=== PATIENT | female | born 1935 | race Caucasian/White ===

== ENCOUNTER → 2016-08-02 | Outpatient (REF) | payer MEDICARE, OTHER ==
[~2016-08-02] MED LIST: /FENT25PA; /FENT25PA TOP; /LANS30GR OR; AMBI5TAB OR; AMLO2.5T OR; BENI20TA11 PO; CALC0.5C OR; CALC600T10; CALCTAB93 OR; CLIMARA TD; LASI40TA OR; LEVO25TABR OR; MAGN500T2 OR; OXYC10TA97; PROC1INJ5 SC; THERGRAN; TYLENOL PM PO; VICO5TAB OR; VIT D 2000 OR; VITA10006 PO; VITAMIN B COMPLE1 OR; VITAMIN D PO; VITAMIN D50000 UNT
== END ==
LOC: M LAB REF 16:37
PROVIDERS: ATTEND Internal Medicine
DX: K31.4 Gastric diverticulum (principal)

== ENCOUNTER 2016-08-04 15:54 | Emergency (ER) | payer MEDICARE, OTHER ==
[~2016-08-04] VITALS: Ht 154.9 cm; Wt 68.9 kg
[~2016-08-04 15:54] MED LIST changes: -PROC1INJ5 SC
[2016-08-04] MEDS ORDERED: PROC1INJ5 SC (16:22)
[2016-08-04] MEDS ORDERED: NS 1,000 ML IV SCH (18:00)
[2016-08-04 18:37] LABS: MEAN CORPUSCULAR HGB CONC 32.2 g/dl (32.0-36.5); MEAN CORPUSCULAR VOLUME 99.5 fl (80.0-96.0); RED CELL DISTRIBUTION WIDTH 12.5 % (11.5-14.5); WHITE BLOOD COUNT 6.7 K/mm3 (4.0-10.0)
[2016-08-04 18:58] LABS: CALCIUM LEVEL 8.8 MG/DL (8.8-10.2); CREATININE FOR GFR 3.57 MG/DL (0.55-1.02); POTASSIUM SERUM 4.6 MEQ/L (3.5-5.1)
[2016-08-04 21:25] VITALS: BP 147/67
== END 2016-08-04 21:30 | disposition home or self-care (01) ==
LOC: M ED 17:19
DX: R42 Dizziness and giddiness (principal); E86.0 Dehydration; R53.1 Weakness; R11.2 Nausea with vomiting, unspecified; N19 Unspecified kidney failure; Z79.899 Other long term (current) drug therapy; Z88.8 Allergy status to other drugs, medicaments and biological substances; Z88.2 Allergy status to sulfonamides; Z88.0 Allergy status to penicillin

== ENCOUNTER → 2016-09-22 | Outpatient (REF) | payer MEDICARE, OTHER ==
[~2016-09-22] MED LIST changes: +PROC1INJ5 SC
== END ==
LOC: M LAB REF 11:46 → M SFHCPLAZ 11:46
PROVIDERS: ATTEND Dermatology
DX: D48.5 Neoplasm of uncertain behavior of skin (principal)

== ENCOUNTER → 2017-08-18 | Outpatient (REF) | payer MEDICARE, OTHER | LOC: M LAB REF 16:56 | DX: N39.0 Urinary tract infection, site not specified (principal) | CPT/HCPCS: 87186 ==

== ENCOUNTER 2018-06-01 07:08 | Day surgery (SDC) | payer MEDICARE, OTHER ==
[~2018-06-01] VITALS: Ht 154.9 cm; Wt 64.4 kg
[~2018-06-01 07:08] MED LIST changes: +ALLO10TA PO; +BALANCED SALT IRRIGATION SOLUTION 500ML BAG (FOR OR EYE MACHINE) As Ordered ONE; +BIOT5TAB3 PO; +CEFUROXIME 1MG/0.1ML INTRACAMERAL INJ As Ordered ONE; +DUOVISC (0.50ML VISCOAT/0.55ML PROVISC) OPHTH KIT As Ordered ONE; +FURO40TA2 PO; +GABA-1171 PO; +LIDOCAINE 0.75%/EPINEPHRINE 0.025% IN BSS 1ML SYR INTRACAMERAL (OR ONLY) As Ordered ONE; +MELA5TAB21 PO; +MIDAZOLAM INJ 2 MG/2 ML VIAL (J2250) As Ordered ONE; +MIRT1TAB PO; +OFLOXACIN 0.3 % (OCUFLOX) OPTH SOL 5ML OS ONE; +PHENYLEPHRINE 2.5% OPHTH SOL 2ML OS ONE; +POVIDONE-IODINE 5% OPHTH PREP SOL 30ML As Ordered ONE; +PROC20004 IJ; +PROPARACAINE 0.5% OPHTH SOL 15ML OS ONE; +RANI150C PO; +ROCA0.25 PO; +TROPICAMIDE 1% OPHTH SOLN 2ML OS ONE; +TYLE1TAB5 PO; +[UNRECOGNIZED DRUG - CODE] PO; +fentaNYL 100 MCG/2 ML INJECTION (J3010) As Ordered ONE
[2018-06-01 09:25] VITALS: BP 184/77
--- NOTE | 2018-06-01 16:03 | RO ---
DATE OF PROCEDURE: 06/01/2018 PREOPERATIVE DIAGNOSIS: 1. Visually significant nuclear sclerotic cataract left eye. POSTOPERATIVE DIAGNOSIS: 1. Visually significant nuclear sclerotic cataract left eye. PROCEDURE: 1. Cataract extraction with use of phacoemulsification and placement of intraocular lens AU00T0, 23.5 D, left eye. SURGEON: Hosea Ramos DO METAL DIE FINISHER: None. ANESTHESIA: Local with monitored anesthesia care (MAC). COMPLICATIONS: None. POSTOPERATIVE CONDITION: Stable. INDICATIONS FOR SURGERY: 1. Blurred vision affecting patients activities of daily living. DESCRIPTION OF PROCEDURE: The patient was seen in the preoperative area and properly identified. The correct operative eye was identified and marked. The patient received topical anesthetic, antibiotics, and topical dilating drops. The patient was then transferred to the operating room. The correct side was re-identified, and a time-out was performed. The eye was prepped and draped in a sterile fashion. The eyelids were isolated with Tegaderm tape, and the lids were held open with an adjustable speculum. A 1.0 mm paracentesis incision was made. Intraocular preservative-free Shugarcaine was then injected into the anterior chamber. Viscoelastic was then injected into the anterior chamber through the paracentesis. Using a 2.4 mm sharp-tipped keratome, the anterior chamber was entered via a temporal clear cornea incision. A continuous curvilinear capsulorrhexis was created with Utrata forceps. Hydrodissection was performed with balanced salt solution (BSS) on a blunt cannula until the nucleus was able to rotate freely. The crystalline lens was phacoemulsified and aspirated. Irrigation/aspiration was used to remove the cortical material. Cohesive viscoelastic was placed into the capsular bag to deepen it. The implant was placed into the capsular bag and allowed to unfold. Placement was confirmed by visualizing the anterior capsulorrhexis. Irrigation/aspiration was used to remove the viscoelastic. The clear corneal incision was hydrated with BSS on a blunt cannula. The lens was well positioned. The incisions were then tested for leaks and found to be negative. The eye was then palpated for appropriate pressure and adjusted accordingly with BSS. The eyelid speculum was then carefully removed. A shield was placed over the eye. The patient tolerated the procedure well and was discharged to the recovery unit in a stable condition. Edited: 06/01/2018 [id number] frankie
== END 2018-06-01 09:38 | disposition home or self-care (01) ==
LOC: M SDC 07:08
PROVIDERS: ATTEND Ophthalmology
DX: H25.12 Age-related nuclear cataract, left eye (principal); I10 Essential (primary) hypertension; K21.9 Gastro-esophageal reflux disease without esophagitis; F32.9 Major depressive disorder, single episode, unspecified; N18.5 Chronic kidney disease, stage 5; Z79.899 Other long term (current) drug therapy; Z88.0 Allergy status to penicillin; Z88.2 Allergy status to sulfonamides; Z88.1 Allergy status to other antibiotic agents
CPT/HCPCS: 66984; J2250; J3010; V2632

== ENCOUNTER 2018-06-08 06:27 | Day surgery (SDC) | payer MEDICARE, OTHER ==
[~2018-06-08] VITALS: Ht 154.9 cm; Wt 70.1 kg
[~2018-06-08 06:27] MED LIST changes: -BALANCED SALT IRRIGATION SOLUTION 500ML BAG (FOR OR EYE MACHINE) As Ordered ONE; -CEFUROXIME 1MG/0.1ML INTRACAMERAL INJ As Ordered ONE; -DUOVISC (0.50ML VISCOAT/0.55ML PROVISC) OPHTH KIT As Ordered ONE; -LIDOCAINE 0.75%/EPINEPHRINE 0.025% IN BSS 1ML SYR INTRACAMERAL (OR ONLY) As Ordered ONE; -MIDAZOLAM INJ 2 MG/2 ML VIAL (J2250) As Ordered ONE; -OFLOXACIN 0.3 % (OCUFLOX) OPTH SOL 5ML OS ONE; -PHENYLEPHRINE 2.5% OPHTH SOL 2ML OS ONE; -POVIDONE-IODINE 5% OPHTH PREP SOL 30ML As Ordered ONE; -PROPARACAINE 0.5% OPHTH SOL 15ML OS ONE; -TROPICAMIDE 1% OPHTH SOLN 2ML OS ONE; -fentaNYL 100 MCG/2 ML INJECTION (J3010) As Ordered ONE
[2018-06-08] MEDS ORDERED: BALANCED SALT IRRIGATION SOLUTION 500ML BAG (FOR OR EYE MACHINE) As Ordered ONE (06:34)
[2018-06-08] MEDS ORDERED: POVIDONE-IODINE 5% OPHTH PREP SOL 30ML As Ordered ONE (06:34)
[2018-06-08] MEDS ORDERED: DUOVISC (0.50ML VISCOAT/0.55ML PROVISC) OPHTH KIT As Ordered ONE (06:35)
[2018-06-08] MEDS ORDERED: LIDOCAINE 0.75%/EPINEPHRINE 0.025% IN BSS 1ML SYR INTRACAMERAL (OR ONLY) As Ordered ONE (06:35)
[2018-06-08] MEDS ORDERED: PROPARACAINE 0.5% OPHTH SOL 15ML OD ONE (07:00)
[2018-06-08] MEDS ORDERED: PHENYLEPHRINE 2.5% OPHTH SOL 2ML OD ONE (07:00)
[2018-06-08] MEDS ORDERED: OFLOXACIN 0.3 % (OCUFLOX) OPTH SOL 5ML OD ONE (07:00)
[2018-06-08] MEDS ORDERED: TROPICAMIDE 1% OPHTH SOLN 2ML OD ONE (07:00)
[2018-06-08] MEDS ORDERED: fentaNYL 100 MCG/2 ML INJECTION (J3010) As Ordered ONE (07:08)
[2018-06-08] MEDS ORDERED: MIDAZOLAM INJ 2 MG/2 ML VIAL (J2250) As Ordered ONE (07:09)
[2018-06-08 08:56] VITALS: BP 174/98
--- NOTE | 2018-06-08 13:53 | RO ---
DATE OF PROCEDURE: 06/08/2018 PREOPERATIVE DIAGNOSIS: 1. Visually significant nuclear sclerotic cataract right eye. POSTOPERATIVE DIAGNOSIS: 1. Visually significant nuclear sclerotic cataract right eye. PROCEDURE: 1. Cataract extraction with use of phacoemulsification and placement of intraocular lens, AU00T0, 22.0 D, right eye. SURGEON: Hosea Ramos DO BRICK BAKER: None. ANESTHESIA: Local with monitored anesthesia care (MAC). COMPLICATIONS: None. POSTOPERATIVE CONDITION: Stable. INDICATIONS FOR SURGERY: 1. Blurred vision affecting patients activities of daily living. DESCRIPTION OF PROCEDURE: The patient was seen in the preoperative area and properly identified. The correct operative eye was identified and marked. The patient received topical anesthetic, antibiotics, and topical dilating drops. The patient was then transferred to the operating room. The correct side was re-identified, and a time-out was performed. The eye was prepped and draped in a sterile fashion. The eyelids were isolated with Tegaderm tape, and the lids were held open with an adjustable speculum. A 1.0 mm paracentesis incision was made. Intraocular preservative-free Shugarcaine was then injected into the anterior chamber. Viscoelastic was then injected into the anterior chamber through the paracentesis. Using a 2.4 mm sharp-tipped keratome, the anterior chamber was entered via a temporal clear cornea incision. A continuous curvilinear capsulorrhexis was created with Utrata forceps. Hydrodissection was performed with balanced salt solution (BSS) on a blunt cannula until the nucleus was able to rotate freely. The crystalline lens was phacoemulsified and aspirated. Irrigation/aspiration was used to remove the cortical material. Cohesive viscoelastic was placed into the capsular bag to deepen it. The implant was placed into the capsular bag and allowed to unfold. Placement was confirmed by visualizing the anterior capsulorrhexis. Irrigation/aspiration was used to remove the viscoelastic. The clear corneal incision was hydrated with BSS on a blunt cannula. The lens was well positioned. The incisions were then tested for leaks and found to be negative. The eye was then palpated for appropriate pressure and adjusted accordingly with BSS. The eyelid speculum was then carefully removed. A shield was placed over the eye. The patient tolerated the procedure well and was discharged to the recovery unit in a stable condition. LEFTY
== END 2018-06-08 09:00 | disposition home or self-care (01) ==
LOC: M SDC 06:27
PROVIDERS: ATTEND Ophthalmology
DX: H25.11 Age-related nuclear cataract, right eye (principal); E03.9 Hypothyroidism, unspecified; I10 Essential (primary) hypertension; F32.9 Major depressive disorder, single episode, unspecified; N18.9 Chronic kidney disease, unspecified; Z79.899 Other long term (current) drug therapy; Z88.0 Allergy status to penicillin
CPT/HCPCS: 66984; J2250; J3010; V2632

== ENCOUNTER → 2018-09-06 | Outpatient (REF) | payer MEDICARE, OTHER ==
[~2018-09-06] MED LIST changes: -/FENT25PA; -/FENT25PA TOP; -CALC0.5C OR; +CALC0.5C14 OR; +FENT1DIS14; +FENT1DIS14 TOP
== END ==
LOC: M LAB REF 17:22
PROVIDERS: ATTEND Internal Medicine Nephrology
DX: N39.0 Urinary tract infection, site not specified (principal)

== ENCOUNTER → 2018-09-28 | Outpatient (REF) | payer MEDICARE, OTHER | LOC: M LAB REF 13:22 | PROVIDERS: ATTEND Internal Medicine Nephrology | DX: N39.0 Urinary tract infection, site not specified (principal) ==

== ENCOUNTER 2018-10-02 11:21 | Outpatient (CLI) | payer MEDICARE, OTHER ==
[~2018-10-02] VITALS: Ht 157.5 cm; Wt 73.1 kg
[2018-10-02 11:25] VITALS: BP 151/67
[2018-10-02] MEDS ORDERED: ERTAPENEM 1 GM INJ (INVanz) (J1335) As Ordered ONE (11:57)
[2018-10-02] MEDS ORDERED: ERTAPENEM SODIUM 1 GM in NS MINI-BAG PLUS 50 ML IV ONE (12:45)
[2018-10-02] MEDS ORDERED: ERTAPENEM SODIUM 1 GM in NS MINI-BAG PLUS 50 ML IV SCH (12:45)
[2018-10-02 13:35] VITALS: BP 142/74
== END 2018-10-02 13:35 | disposition home or self-care (01) ==
LOC: M INFU 11:21
PROVIDERS: ATTEND Internal Medicine Nephrology
DX: N39.0 Urinary tract infection, site not specified (principal); Z88.0 Allergy status to penicillin; Z88.2 Allergy status to sulfonamides; Z88.1 Allergy status to other antibiotic agents; Z88.8 Allergy status to other drugs, medicaments and biological substances
CPT/HCPCS: 96365; J1335

== ENCOUNTER 2018-10-03 11:28 | Outpatient (CLI) | payer MEDICARE, OTHER ==
[~2018-10-03] VITALS: Ht 156.2 cm; Wt 73.1 kg
[2018-10-03] MEDS ORDERED: ERTAPENEM SODIUM 1 GM in NS MINI-BAG PLUS 50 ML IV SCH (12:00)
[2018-10-03 12:12] VITALS: BP 159/71
[2018-10-03 12:30] VITALS: BP 159/74
[2018-10-03 12:50] VITALS: BP 148/68
== END 2018-10-03 12:50 | disposition home or self-care (01) ==
LOC: M INFU 11:28
PROVIDERS: ATTEND Internal Medicine Nephrology
DX: N39.0 Urinary tract infection, site not specified (principal); Z88.0 Allergy status to penicillin; Z88.2 Allergy status to sulfonamides
CPT/HCPCS: 96365; J1335

== ENCOUNTER 2018-10-04 14:28 | Outpatient (CLI) | payer MEDICARE, OTHER ==
[~2018-10-04] VITALS: Ht 156.2 cm; Wt 73.1 kg
[2018-10-04 14:35] VITALS: BP 177/56
[2018-10-04] MEDS ORDERED: ERTAPENEM SODIUM 1 GM in NS MINI-BAG PLUS 50 ML IV ONE (14:45)
[2018-10-04 15:30] VITALS: BP 172/74
== END 2018-10-04 15:30 | disposition home or self-care (01) ==
LOC: M INFU 14:28
PROVIDERS: ATTEND Internal Medicine Nephrology
DX: N39.0 Urinary tract infection, site not specified (principal); Z88.0 Allergy status to penicillin; Z88.1 Allergy status to other antibiotic agents; Z88.2 Allergy status to sulfonamides; Z88.8 Allergy status to other drugs, medicaments and biological substances
CPT/HCPCS: 96365; J1335

== ENCOUNTER 2018-10-05 13:31 | Outpatient (CLI) | payer MEDICARE, OTHER ==
[~2018-10-05] VITALS: Ht 156.2 cm; Wt 73.1 kg
[2018-10-05 13:40] VITALS: BP 138/54
[2018-10-05] MEDS ORDERED: ERTAPENEM SODIUM 1 GM in NS MINI-BAG PLUS 50 ML IV ONE (14:00)
== END 2018-10-05 14:40 | disposition home or self-care (01) ==
LOC: M INFU 13:31
PROVIDERS: ATTEND Internal Medicine Nephrology
DX: N39.0 Urinary tract infection, site not specified (principal); Z88.0 Allergy status to penicillin; Z88.1 Allergy status to other antibiotic agents; Z88.2 Allergy status to sulfonamides; Z88.8 Allergy status to other drugs, medicaments and biological substances
CPT/HCPCS: 96365; J1335

== ENCOUNTER → 2019-05-03 | Outpatient (REF) | payer MEDICARE, OTHER | LOC: M LAB REF 18:26 | PROVIDERS: ATTEND Internal Medicine Nephrology | DX: D50.9 Iron deficiency anemia, unspecified (principal) ==

== ENCOUNTER → 2019-09-13 | Outpatient (REF) | payer MEDICARE, OTHER | LOC: M LAB REF 12:28 | PROVIDERS: ATTEND Internal Medicine | DX: R10.9 Unspecified abdominal pain (principal) ==

== ENCOUNTER → 2020-01-22 | Outpatient (REF) | payer MEDICARE, OTHER ==
[2020-01-22 19:14] LABS: PERCENT SATURATION 34.2 % (13.2-45.0)
== END ==
LOC: M LAB REF 17:55
PROVIDERS: ATTEND Internal Medicine Nephrology
DX: D50.9 Iron deficiency anemia, unspecified (principal)

== ENCOUNTER → 2020-07-29 | Outpatient (REF) | payer MEDICARE, OTHER ==
[2020-07-29 18:20] LABS: PERCENT SATURATION 33.8 % (13.2-45.0)
== END ==
LOC: M LAB REF 16:42
PROVIDERS: ATTEND Internal Medicine Nephrology
DX: N18.9 Chronic kidney disease, unspecified (principal); D63.1 Anemia in chronic kidney disease

== ENCOUNTER → 2020-09-02 | Outpatient (REF) | payer MEDICARE, OTHER | LOC: M LAB REF 17:06 | PROVIDERS: ATTEND Internal Medicine Nephrology | DX: N39.0 Urinary tract infection, site not specified (principal) ==

== ENCOUNTER → 2020-11-25 | Outpatient (REF) | payer MEDICARE, OTHER | LOC: M LAB REF 17:12 | PROVIDERS: ATTEND Internal Medicine Nephrology | DX: N39.0 Urinary tract infection, site not specified (principal) ==

== ENCOUNTER → 2020-11-27 | Outpatient (CLI) | payer MEDICARE, OTHER ==
[~2020-11-27] VITALS: Ht 157.5 cm; Wt 64.1 kg
[~2020-11-27] MED LIST changes: +ERTAPENEM SODIUM 500 MG in NS 50 ML IV ONE
[2020-11-27 15:20] VITALS: BP 170/78
[2020-11-27 17:40] VITALS: BP 162/68
== END ==
LOC: M INFU 15:14
PROVIDERS: ATTEND Internal Medicine Nephrology
DX: N18.5 Chronic kidney disease, stage 5 (principal); N39.0 Urinary tract infection, site not specified; Z88.0 Allergy status to penicillin; Z88.1 Allergy status to other antibiotic agents; Z88.2 Allergy status to sulfonamides
CPT/HCPCS: 96365; J1335

== ENCOUNTER 2020-11-28 15:38 | Outpatient (CLI) | payer MEDICARE, OTHER ==
[~2020-11-28] VITALS: Ht 154.9 cm; Wt 64.1 kg
[2020-11-28 15:45] VITALS: BP 170/80
[2020-11-28 17:01] VITALS: BP 148/72
== END 2020-11-28 17:05 | disposition home or self-care (01) ==
LOC: M INFU 15:38
PROVIDERS: ATTEND Internal Medicine Nephrology
DX: N18.5 Chronic kidney disease, stage 5 (principal); N39.0 Urinary tract infection, site not specified; Z88.0 Allergy status to penicillin; Z88.1 Allergy status to other antibiotic agents; Z88.2 Allergy status to sulfonamides
CPT/HCPCS: 96365; J1335

== ENCOUNTER 2020-11-29 13:47 | Outpatient (CLI) | payer MEDICARE, OTHER ==
[~2020-11-29] VITALS: Ht 154.9 cm; Wt 64.4 kg
[~2020-11-29 13:47] MED LIST changes: -ERTAPENEM SODIUM 500 MG in NS 50 ML IV ONE
[2020-11-29] MEDS ORDERED: ERTAPENEM SODIUM 500 MG in NS 50 ML IV ONE (16:00)
== END 2020-11-29 16:20 | disposition home or self-care (01) ==
LOC: M OPCLI4PR 13:47 → M MSPAV 13:50 → M OPCLI4PR 16:20
PROVIDERS: ATTEND Internal Medicine Nephrology
DX: N18.5 Chronic kidney disease, stage 5 (principal); N39.0 Urinary tract infection, site not specified; Z88.0 Allergy status to penicillin; Z88.1 Allergy status to other antibiotic agents; Z88.2 Allergy status to sulfonamides
CPT/HCPCS: 96374; J1335

== ENCOUNTER 2020-11-30 13:00 | Outpatient (CLI) | payer MEDICARE, OTHER ==
[~2020-11-30] VITALS: Ht 154.9 cm; Wt 64.3 kg
[2020-11-30 14:00] VITALS: BP 133/60
[2020-11-30] MEDS ORDERED: ERTAPENEM SODIUM 500 MG in NS 50 ML IV ONE (15:00)
== END 2020-11-30 16:05 | disposition home or self-care (01) ==
LOC: M OPCLI4PR 13:00 → M MSPAV 13:02 → M OPCLI4PR 16:05
PROVIDERS: ATTEND Internal Medicine Nephrology
DX: N18.5 Chronic kidney disease, stage 5 (principal); N39.0 Urinary tract infection, site not specified; Z88.0 Allergy status to penicillin; Z88.1 Allergy status to other antibiotic agents; Z88.2 Allergy status to sulfonamides
CPT/HCPCS: 96365; 96366; J1335

== ENCOUNTER 2020-12-01 13:10 | Outpatient (CLI) | payer MEDICARE, OTHER ==
[~2020-12-01] VITALS: Ht 157.5 cm; Wt 64.1 kg
[2020-12-01 13:25] VITALS: BP 164/56
[2020-12-01] MEDS ORDERED: ERTAPENEM SODIUM 500 MG in NS 50 ML IV ONE (14:00)
== END 2020-12-01 14:38 | disposition home or self-care (01) ==
LOC: M OPCLI4PV 13:10 → M MSPAV 13:14 → M OPCLI4PV 14:38
PROVIDERS: ATTEND Internal Medicine Nephrology
DX: N18.5 Chronic kidney disease, stage 5 (principal); N39.0 Urinary tract infection, site not specified; Z88.0 Allergy status to penicillin; Z88.1 Allergy status to other antibiotic agents; Z88.2 Allergy status to sulfonamides
CPT/HCPCS: 96365; J1335

== ENCOUNTER 2020-12-02 15:56 | Outpatient (CLI) | payer MEDICARE, OTHER ==
[~2020-12-02] VITALS: Ht 157.5 cm; Wt 64.1 kg
[2020-12-02 16:00] VITALS: BP 162/72
[2020-12-02] MEDS ORDERED: ERTAPENEM SODIUM 500 MG in NS 50 ML IV ONE (16:00)
[2020-12-02 16:50] VITALS: BP 162/80
== END 2020-12-02 16:50 | disposition home or self-care (01) ==
LOC: M INFU 15:56
PROVIDERS: ATTEND Internal Medicine Nephrology
DX: N18.5 Chronic kidney disease, stage 5 (principal); N39.0 Urinary tract infection, site not specified; Z88.0 Allergy status to penicillin; Z88.1 Allergy status to other antibiotic agents; Z88.2 Allergy status to sulfonamides
CPT/HCPCS: 96365; J1335

== ENCOUNTER 2020-12-03 15:09 | Outpatient (CLI) | payer MEDICARE, OTHER ==
[2020-12-03 15:30] VITALS: BP 140/68
[2020-12-03] MEDS ORDERED: ERTAPENEM SODIUM 500 MG in NS 50 ML IV ONE (15:30)
== END 2020-12-03 16:30 | disposition home or self-care (01) ==
LOC: M INFU 15:09
PROVIDERS: ATTEND Internal Medicine Nephrology
DX: N18.5 Chronic kidney disease, stage 5 (principal); N39.0 Urinary tract infection, site not specified; Z88.0 Allergy status to penicillin; Z88.2 Allergy status to sulfonamides; Z88.1 Allergy status to other antibiotic agents
CPT/HCPCS: 96365; 96366; J1335

== ENCOUNTER → 2020-12-25 | Outpatient (REF) | payer MEDICARE, OTHER | LOC: M LAB REF 17:43 | PROVIDERS: ATTEND Internal Medicine Nephrology | DX: E83.42 Hypomagnesemia (principal) ==

== ENCOUNTER → 2022-08-16 | Outpatient (REF) | payer MEDICARE, OTHER ==
[2022-08-16 17:12] LABS: URIC ACID 4.8 MG/DL (3.1-7.8)
[2022-08-16 17:15] LABS: PHOSPHORUS LEVEL 4.5 MG/DL (2.4-5.1); PTH INTACT 80.4 PG/ML (18.5-88.0)
[2022-08-16 17:18] LABS: FERRITIN 117.1 NG/ML (7.3-270.7)
== END ==
LOC: M LAB REF 16:13
PROVIDERS: ATTEND Internal Medicine
DX: I13.2 Hypertensive heart and chronic kidney disease with heart failure and with stage 5 chronic kidney disease, or end stage renal disease (principal); N18.5 Chronic kidney disease, stage 5; M10.9 Gout, unspecified; D63.1 Anemia in chronic kidney disease; E03.9 Hypothyroidism, unspecified

== ENCOUNTER → 2023-02-18 | Outpatient (REF) | payer MEDICARE, OTHER | LOC: M LAB REF 17:16 | PROVIDERS: ATTEND Internal Medicine Nephrology | DX: N39.0 Urinary tract infection, site not specified (principal) ==

== ENCOUNTER 2023-03-01 19:51 | Emergency (ER) | payer MEDICARE, OTHER ==
[~2023-03-01] VITALS: Ht 154.9 cm; Wt 73.2 kg
[2023-03-01 19:51] VITALS: BP 161/72; TEMP 97.6; O2SAT 98
== END 2023-03-01 20:01 | disposition left against medical advice (07) ==
LOC: M ED 19:51
DX: Z53.21 Procedure and treatment not carried out due to patient leaving prior to being seen by health care provider (principal)

== ENCOUNTER → 2023-04-04 | Outpatient (REF) | payer MEDICARE, OTHER | LOC: M LAB REF 12:01 | PROVIDERS: ATTEND Internal Medicine | DX: R31.9 Hematuria, unspecified (principal) ==

== ENCOUNTER → 2023-04-20 | Outpatient (REF) | payer MEDICARE, OTHER ==
[~2023-04-20] MED LIST changes: +ACET-897 PO; +AMBI10TA PO; +APOAEQUORIN PO; +CINA30TA5 PO; +LEVO125T4 PO; +MINO10TA PO; +RA M10TA PO; +SERT25TA21 PO
[2023-04-20 18:23] LABS: PERCENT SATURATION 12.6 % (13.2-45.0)
== END ==
LOC: M LAB REF 17:09
PROVIDERS: ATTEND Internal Medicine Nephrology
DX: N39.0 Urinary tract infection, site not specified (principal); D50.9 Iron deficiency anemia, unspecified

== ENCOUNTER 2023-04-25 10:08 | Inpatient (IN) | payer MEDICARE, OTHER ==
[~2023-04-25] VITALS: Ht 154.9 cm; Wt 71.2 kg
[2023-04-25] VITALS (9 sets, daily range): BP systolic 97–169; BP diastolic 57–74; TEMP 97.2–98.6; O2SAT 96–100
[~2023-04-25 10:08] MED LIST changes: -ACET-897 PO; -AMBI10TA PO; -APOAEQUORIN PO; -CINA30TA5 PO; -LEVO125T4 PO; -MINO10TA PO; -RA M10TA PO; -SERT25TA21 PO
[2023-04-25] MEDS ORDERED: MOM 30ML SUSPENSION UDC PO PRN (12:10)
[2023-04-25] MEDS ORDERED: MAALOX 30 ML SUSP *UDC PO PRN (12:10)
[2023-04-25] MEDS ORDERED: HEPARIN SOD (PORCINE) 5000UNITS/ML 1ML VIAL/SYRINGE SC SCH (12:15)
[2023-04-25] MEDS ORDERED: MED REC IN PROGRESS XX SCH (12:40)
[2023-04-25 12:57] LABS: BASO % 0.5 % (0.0-1.0); EOS # 0.1 10^3/uL (0.0-0.5); EOS % 2.2 % (0.0-3.0); HEMATOCRIT 21.8 % (36.0-47.0); LYMPH # 0.9 10^3/uL (1.5-5.0); LYMPH % 15.6 % (24.0-44.0); MEAN CORPUSCULAR HEMOGLOBIN 34.3 pg (27.0-33.0); MEAN CORPUSCULAR HGB CONC 31.7 g/dl (32.0-36.5); MEAN CORPUSCULAR VOLUME 108.5 fl (80.0-96.0); MONO # 0.7 10^3/uL (0.0-0.8); MONO % 13.2 % (2.0-8.0); NEUTROPHILS # 3.7 10^3/uL (1.5-8.5); NEUTROPHILS % 66.9 % (36.0-66.0); PLATELET COUNT, AUTOMATED 227 10^3/uL (150-450); RED BLOOD COUNT 2.01 10^6/uL (4.00-5.40); WHITE BLOOD COUNT 5.5 10^3/uL (4.0-10.0)
[2023-04-25 13:01] LABS: HEMOGLOBIN 6.9 g/dl (12.0-15.5)
[2023-04-25 13:19] LABS: CALCIUM LEVEL 6.4 MG/DL (8.3-10.6); CREATININE FOR GFR 2.96 MG/DL (0.55-1.30); GLOMERULAR FILTRATION RATE 15.9 (>32); POTASSIUM SERUM 4.6 MMOL/L (3.5-5.1)
[2023-04-25 13:40] LABS: PERCENT SATURATION 17.1 % (13.2-45.0)
[2023-04-25 13:43] LABS: FERRITIN 61.3 NG/ML (7.3-270.7); TOTAL 25(OH) VITAMIN D 49.8 NG/ML (20.0-100.0)
[2023-04-25] MEDS ORDERED: ACET-897 PO (13:48)
[2023-04-25] MEDS ORDERED: MINO10TA PO (13:48)
[2023-04-25] MEDS ORDERED: APOAEQUORIN PO (13:48)
[2023-04-25] MEDS ORDERED: CINA30TA5 PO (13:48)
[2023-04-25] MEDS ORDERED: AMBI10TA PO (13:48)
[2023-04-25] MEDS ORDERED: RA M10TA PO (13:48)
[2023-04-25] MEDS ORDERED: LEVO125T4 PO (13:48)
[2023-04-25] MEDS ORDERED: PROC1INJ5 SC (13:48)
[2023-04-25] MEDS ORDERED: SERT25TA21 PO (13:48)
[2023-04-25] MEDS ORDERED: HOME MED LIST COMPLETE! XX SCH (13:55)
[2023-04-25] MEDS ORDERED: cefTRIAXone SOD 1GM VIAL IM SCH (14:10)
[2023-04-25] MEDS ORDERED: CALCIUM GLUCONATE 1,000 MG in D5W MINI-BAG PLUS 100 ML IV ONE (14:55)
[2023-04-25] MEDS: ACETAMINOPHEN TAB 650MG DOSE (2X325MG) PO PRN ×2 (16:02→22:20)
[2023-04-25] MEDS: cefTRIAXone SOD 1 GM in D5W MINI-BAG PLUS 50 ML IV SCH (16:07)
[2023-04-25] MEDS ORDERED: RAMELTEON 8 MG TAB (ROZEREM) PO PRN (19:05)
[2023-04-25 22:15] LABS: HEMOGLOBIN 8.3 g/dl (12.0-15.5)
[2023-04-26] MEDS: LEVOTHYROXINE 125MCG TABLET (0.125MG) PO SCH (05:32)
[2023-04-26 06:00] VITALS: BP 152/78; TEMP 98.1; O2SAT 95
[2023-04-26 06:32] LABS: BASO % 0.5 % (0.0-1.0); EOS # 0.2 10^3/uL (0.0-0.5); EOS % 4.1 % (0.0-3.0); HEMATOCRIT 24.3 % (36.0-47.0); LYMPH # 1.1 10^3/uL (1.5-5.0); LYMPH % 18.2 % (24.0-44.0); MEAN CORPUSCULAR HEMOGLOBIN 33.9 pg (27.0-33.0); MEAN CORPUSCULAR HGB CONC 32.9 g/dl (32.0-36.5); MONO # 0.8 10^3/uL (0.0-0.8); MONO % 13.9 % (2.0-8.0); NEUTROPHILS # 3.6 10^3/uL (1.5-8.5); NEUTROPHILS % 61.8 % (36.0-66.0); PLATELET COUNT, AUTOMATED 222 10^3/uL (150-450); RED BLOOD COUNT 2.36 10^6/uL (4.00-5.40); WHITE BLOOD COUNT 5.9 10^3/uL (4.0-10.0)
[2023-04-26 06:56] LABS: CALCIUM LEVEL 6.7 MG/DL (8.3-10.6); CREATININE FOR GFR 2.83 MG/DL (0.55-1.30); GLOMERULAR FILTRATION RATE 16.7 (>32); POTASSIUM SERUM 4.4 MMOL/L (3.5-5.1)
[2023-04-26] MEDS: CINACALCET 30 MG TAB (SENSIPAR) PO SCH (08:19)
[2023-04-26] MEDS: SERTRALINE HCL 25 MG TABLET PO SCH (08:19)
[2023-04-26] MEDS: ACETAMINOPHEN TAB 650MG DOSE (2X325MG) PO PRN (08:20)
[2023-04-26] MEDS ORDERED: FUROSEMIDE 100MG/10ML VIAL IV ONE (10:00)
[2023-04-26 11:19] VITALS: BP 108/63; TEMP 98.1; O2SAT 97
[2023-04-26] MEDS ORDERED: FERRIC CARBOXYMALTOSE INJ 750 MG, VIAL MATE ADAPTER 1 EACH in NS 250 ML IV ONE (12:00)
[2023-04-26 12:30] VITALS: BP 122/62; TEMP 98.1; O2SAT 97
[2023-04-26] MEDS: cefTRIAXone SOD 1 GM in D5W MINI-BAG PLUS 50 ML IV SCH (15:00)
[2023-04-27 05:15] VITALS: BP 146/67; TEMP 98.1; O2SAT 95
[2023-04-27 05:40] LABS: HEMATOCRIT 29.2 % (36.0-47.0); HEMOGLOBIN 9.5 g/dl (12.0-15.5); MEAN CORPUSCULAR HEMOGLOBIN 33.7 pg (27.0-33.0); MEAN CORPUSCULAR HGB CONC 32.5 g/dl (32.0-36.5); MEAN CORPUSCULAR VOLUME 103.5 fl (80.0-96.0); PLATELET COUNT, AUTOMATED 291 10^3/uL (150-450); RED BLOOD COUNT 2.82 10^6/uL (4.00-5.40)
[2023-04-27] MEDS: LEVOTHYROXINE 125MCG TABLET (0.125MG) PO SCH (05:50)
[2023-04-27 06:08] LABS: CALCIUM LEVEL 7.2 MG/DL (8.3-10.6); CREATININE FOR GFR 2.48 MG/DL (0.55-1.30); GLOMERULAR FILTRATION RATE 19.5 (>32); MAGNESIUM LEVEL 2.1 MG/DL (1.8-2.4); POTASSIUM SERUM 4.4 MMOL/L (3.5-5.1)
[2023-04-27] MEDS: CINACALCET 30 MG TAB (SENSIPAR) PO SCH (08:32)
[2023-04-27] MEDS: SERTRALINE HCL 25 MG TABLET PO SCH (08:32)
[2023-04-27] MEDS: FUROSEMIDE 100MG/10ML VIAL IV SCH ×2 (10:18→16:06)
[2023-04-27 14:00] VITALS: BP 150/80; TEMP 98.2; O2SAT 100
[2023-04-27] MEDS: ACETAMINOPHEN TAB 650MG DOSE (2X325MG) PO PRN (15:08)
[2023-04-27] MEDS: cefTRIAXone SOD 1 GM in D5W MINI-BAG PLUS 50 ML IV SCH (15:08)
[2023-04-27 20:00] VITALS: BP 150/60; TEMP 98.8; O2SAT 98
[2023-04-28] MEDS: LEVOTHYROXINE 125MCG TABLET (0.125MG) PO SCH (05:37)
[2023-04-28 05:55] VITALS: BP 158/76; TEMP 98.6; O2SAT 95
[2023-04-28 06:37] LABS: HEMOGLOBIN 8.3 g/dl (12.0-15.5); MEAN CORPUSCULAR HEMOGLOBIN 34.7 pg (27.0-33.0); MEAN CORPUSCULAR HGB CONC 33.2 g/dl (32.0-36.5); MEAN CORPUSCULAR VOLUME 104.6 fl (80.0-96.0); PLATELET COUNT, AUTOMATED 224 10^3/uL (150-450); RED BLOOD COUNT 2.39 10^6/uL (4.00-5.40); WHITE BLOOD COUNT 8.5 10^3/uL (4.0-10.0)
[2023-04-28 07:12] LABS: CALCIUM LEVEL 6.9 MG/DL (8.3-10.6); CREATININE FOR GFR 2.44 MG/DL (0.55-1.30); GLOMERULAR FILTRATION RATE 19.9 (>32); MAGNESIUM LEVEL 1.9 MG/DL (1.8-2.4)
[2023-04-28] MEDS: SERTRALINE HCL 25 MG TABLET PO SCH (08:40)
[2023-04-28] MEDS: CINACALCET 30 MG TAB (SENSIPAR) PO SCH (08:40)
[2023-04-28] MEDS: ACETAMINOPHEN TAB 650MG DOSE (2X325MG) PO PRN (08:42)
[2023-04-28] MEDS: FUROSEMIDE 100MG/10ML VIAL IV SCH ×3 (12:08→18:53)
[2023-04-28 14:15] VITALS: BP 172/62; TEMP 98.4; O2SAT 98
[2023-04-28] MEDS: CEFDINIR 300 MG CAP (OMNICEF) PO SCH (16:46)
[2023-04-28 21:00] VITALS: BP 120/60; TEMP 98; O2SAT 98
[2023-04-29 05:25] VITALS: BP 180/62; TEMP 99.6; O2SAT 97
[2023-04-29] MEDS: LEVOTHYROXINE 125MCG TABLET (0.125MG) PO SCH (05:26)
[2023-04-29 06:46] LABS: HEMATOCRIT 27.7 % (36.0-47.0); HEMOGLOBIN 8.8 g/dl (12.0-15.5); MEAN CORPUSCULAR HEMOGLOBIN 33.2 pg (27.0-33.0); MEAN CORPUSCULAR HGB CONC 31.8 g/dl (32.0-36.5); MEAN CORPUSCULAR VOLUME 104.5 fl (80.0-96.0); PLATELET COUNT, AUTOMATED 216 10^3/uL (150-450); RED BLOOD COUNT 2.65 10^6/uL (4.00-5.40); WHITE BLOOD COUNT 8.2 10^3/uL (4.0-10.0)
[2023-04-29 07:09] LABS: CREATININE FOR GFR 2.45 MG/DL (0.55-1.30); GLOMERULAR FILTRATION RATE 19.8 (>32); MAGNESIUM LEVEL 1.8 MG/DL (1.8-2.4); POTASSIUM SERUM 3.7 MMOL/L (3.5-5.1)
[2023-04-29] MEDS ORDERED: TORSEMIDE 20 MG TAB PO SCH (09:00)
[2023-04-29] MEDS: CEFDINIR 300 MG CAP (OMNICEF) PO SCH (09:23)
[2023-04-29] MEDS: SERTRALINE HCL 25 MG TABLET PO SCH (09:23)
[2023-04-29] MEDS: CINACALCET 30 MG TAB (SENSIPAR) PO SCH (09:23)
[2023-04-29 09:30] VITALS: BP 140/60
[2023-04-29] MEDS ORDERED: BACI1CAP PO (10:16)
[2023-04-29] MEDS ORDERED: CEFD300CAP PO (10:16)
[2023-04-29] MEDS ORDERED: TORS20TA2 PO (12:17)
== END 2023-04-29 14:09 | disposition home or self-care (01) | DRG 640 ==
LOC: M MSPAV 11:24
PROVIDERS: ADMIT Internal Medicine; ATTEND General Practice
PROC: B246ZZZ Ultrasonography of Right and Left Heart (ICD-10-PCS; principal; 2023-04-25)
PROC: 30233N1 Transfusion of Nonautologous Red Blood Cells into Peripheral Vein, Percutaneous Approach (ICD-10-PCS; 2023-04-25)
DX: E87.70 Fluid overload, unspecified (principal); U07.1 COVID-19; N39.0 Urinary tract infection, site not specified; N18.4 Chronic kidney disease, stage 4 (severe); I13.0 Hypertensive heart and chronic kidney disease with heart failure and stage 1 through stage 4 chronic kidney disease, or unspecified chronic kidney disease; N17.9 Acute kidney failure, unspecified; I50.32 Chronic diastolic (congestive) heart failure; I27.20 Pulmonary hypertension, unspecified; Z66 Do not resuscitate; E78.5 Hyperlipidemia, unspecified; E03.9 Hypothyroidism, unspecified; K59.09 Other constipation; E66.9 Obesity, unspecified; I35.0 Nonrheumatic aortic (valve) stenosis; I89.0 Lymphedema, not elsewhere classified; D63.1 Anemia in chronic kidney disease; Z90.49 Acquired absence of other specified parts of digestive tract; Z90.79 Acquired absence of other genital organ(s); Z98.49 Cataract extraction status, unspecified eye; B96.20 Unspecified Escherichia coli [E. coli] as the cause of diseases classified elsewhere; Z79.890 Hormone replacement therapy; Z79.899 Other long term (current) drug therapy; Z88.0 Allergy status to penicillin; Z88.1 Allergy status to other antibiotic agents; Z88.2 Allergy status to sulfonamides; Z88.8 Allergy status to other drugs, medicaments and biological substances

== ENCOUNTER → 2023-08-25 | Outpatient (REF) | payer MEDICARE, OTHER ==
[~2023-08-25] MED LIST changes: +ACET-897 PO; +AMBI10TA PO; +APOAEQUORIN PO; +BACI1CAP PO; +CEFD300CAP PO; +CINA30TA5 PO; +LEVO125T4 PO; +MINO10TA PO; +RA M10TA PO; +SERT25TA21 PO; +TORS20TA2 PO
[2023-08-25 18:55] LABS: PHOSPHORUS LEVEL 4.6 MG/DL (2.4-5.1); PTH INTACT 115.2 PG/ML (18.5-88.0)
[2023-08-25 18:58] LABS: URIC ACID 5.6 MG/DL (3.1-7.8)
== END ==
LOC: M LAB REF 16:29
PROVIDERS: ATTEND Internal Medicine
DX: N18.5 Chronic kidney disease, stage 5 (principal)